=== PATIENT | female | born 1965 | race African-American/Black ===

== ENCOUNTER 2018-06-19 23:36 | Emergency (ER) | payer MEDICAID ==
[~2018-06-19] VITALS: Ht 175.3 cm; Wt 131.5 kg
[~2018-06-19 23:36] MED LIST: ACETAMINOPHEN-1 EAC1 ORAL; BACTRIM DS TAB1 EAC1 ORAL; CEPHALEXIN500 MG ORAL; KEFLEX500 MG ORAL; NKM; NORCO 5-325 TA1 EACH ORAL
[2018-06-20 00:11] VITALS: BP 141/90
[2018-06-20] MEDS ORDERED: Cephalexin 500mg cap ORAL ONE (00:30)
[2018-06-20] MEDS ORDERED: Bactrim-DS 1 tab ORAL ONE (00:30)
[2018-06-20] MEDS ORDERED: BACTRIM DS TAB1 EAC1 ORAL (00:34)
[2018-06-20] MEDS ORDERED: CEPHALEXIN500 MG ORAL (00:34)
[2018-06-20] MEDS ORDERED: ACETAMINOPHEN-1 EAC1 ORAL (00:34)
[2018-06-20 00:58] VITALS: BP 139/89
--- NOTE | 2018-06-20 02:18 | Emergency Room Report ---
History of Present Illness General Chief Complaint: Female Urogenital Problems Source: Patient Present Illness HPI 53-year-old female presents ED for evaluation. Patient notes a boil on her vagina 1 day. Pain is throbbing, 9 out of 10, nonradiating. Denies fevers chills. Denies discharge. States she's had these many times in the past; has sometimes required antibiotics. Some has required drainage. No other aggravating relieving factors. Denies any other associated symptoms Allergies: Coded Allergies: No Known Allergies (Unverified , 11/10/17) Patient History Past Medical History: none Past Surgical History: none Pertinent Family History: none Social History: Denies: smoking, alcohol use, drug use Now: No Immunizations: UTD Reviewed Nursing Documentation: PMH: Agreed; PSxH: Agreed Nursing Documentation-PMH Past Medical History: No Stated History Review of Systems All Other Systems: negative except mentioned in HPI Physical Exam Vital Signs Date Time Temp Pulse Resp B/P (MAP) Pulse Ox O2 Delivery O2 Flow Rate FiO2 06/19/18 23:55 98.1 87 18 149/91 98 Room Air 98.1 Sp02 EP Interpretation: reviewed, normal General Appearance: no apparent distress, alert, GCS 15, non-toxic Head: normocephalic Eyes: bilateral eye normal inspection, bilateral eye PERRL ENT: normal ENT inspection Neck: normal inspection Respiratory: normal inspection Cardiovascular #1: normal inspection Gastrointestinal: normal inspection Rectal: deferred Genitourinary: no CVA tenderness, other - customer service representative teacher present. induration/ erythema to R labia. no fluctuance or discharge. Musculoskeletal: normal inspection Neurologic: alert, oriented x3, responsive, motor strength/tone normal, sensory intact, speech normal Psychiatric: normal inspection Skin: other - induration/erythema R labia Lymphatic: normal inspection Medical Decision Making Diagnostic Impression: Primary Impression: Labial abscess ER Course Hospital Course 53-year-old female presents to ED with pain/swelling to labia Differential diagnoses include: Cellulitis, dermatitis, insect bite, abscess Clinical course Patient placed on stretcher. After initial history, physical exam reveals a middle aged female in no acute distress. On exam there is a site for mild erythema and induration to the R labia. There is no fluctuance. No discharge Discussed findings with patient. I do not believe this is amenable to drainage at this time. We will prescribe antibiotics. Recommend sitz baths.. Close follow-up with PMD. patient agrees to plan given pain meds, antibiotics in ED Diagnosis - labial abscess stable and discharged to home with prescription for Tylenol #3, bactrim, Keflex. Instructed to followup with PMD. Instructed return to ED if symptoms recur or worsen Last Vital Signs Date Time Temp Pulse Resp B/P (MAP) Pulse Ox O2 Delivery O2 Flow Rate FiO2 06/20/18 00:58 98.0 06/20/18 00:58 87 16 139/89 95 Room Air Status: improved Disposition: HOME, SELF-CARE Condition: Stable Scripts Cephalexin* (KEFLEX*) 500 Mg Capsule 500 MG ORAL EVERY 6 HOURS for 7 Days, CAP Prov: Pratik Shelton MD 06/20/18 Trimethoprim/Sulfamethoxazole 160/800* (BACTRIM DS TABLET*) 1 Each Tablet 1 TAB ORAL Q12H, #14 TAB 0 Refills Prov: Pratik Shelton MD 06/20/18 Acetaminophen With Codeine (T#3) (TYLENOL #3 TAB*) Y Tab 1 TAB ORAL Q8H PRN for For Pain, #20 TAB Prov: Pratik Shelton MD 06/20/18 Patient Instructions: Abscess, Mnup-th-Kyid Pratik Shelton MD Jun 20, 2018 02:18
== END 2018-06-20 | disposition home or self-care (01) ==
LOC: EDBD 23:36 → EMR 06-20 00:17
DX: N76.4 Abscess of vulva (principal)
CPT/HCPCS: 99283

== ENCOUNTER → 2020-02-15 | Emergency (ER) | payer MEDICAID ==
[~2020-02-15] VITALS: Ht 172.7 cm; Wt 122.5 kg
[~2020-02-15] MED LIST changes: +IBUPROFEN600 M1 ORAL; +Ketorolac 60mg Inj IM ONE
[2020-02-15 20:05] VITALS: BP 158/87
--- NOTE | 2020-02-15 20:05 | NUR ---
ED Nurse Note: walked in from home c/o left index finger pain since today after hitting on a bedrail. taran wilson. kamerond at bedside.
--- NOTE | 2020-02-15 20:14 | Emergency Room Report ---
History of Present Illness General Chief Complaint: Upper Extremity Injury Source: Patient Present Illness HPI Patient is a 54-year-old female who presents to the ER complaining of left index finger pain after hitting it on the bed. She denies any other trauma. She states that it is worse on palpation and on movement. She complains of mild swelling to the area. Allergies: Coded Allergies: No Known Allergies (Unverified , 11/10/17) COVID-19 Screening Contact w/high risk pt: No Recent Travel to affected area: No Experienced COVID-19 symptoms?: No Patient History Reviewed Nursing Documentation: PMH: Agreed; PSxH: Agreed Nursing Documentation-PM Past Medical History: No Stated History Review of Systems All Other Systems: negative except mentioned in HPI Physical Exam Vital Signs Date Time Temp Pulse Resp B/P (MAP) Pulse Ox O2 Delivery O2 Flow Rate FiO2 02/15/20 20:02 98.1 90 18 166/99 (121) 99 Room Air Sp02 EP Interpretation: reviewed, normal General Appearance: no apparent distress, alert, GCS 15, non-toxic Head: normocephalic, atraumatic Eyes: bilateral eye normal inspection, bilateral eye PERRL ENT: hearing grossly normal, normal pharynx, no angioedema, normal voice Neck: full range of motion, supple/symm/no masses Respiratory: chest non-tender, lungs clear, normal breath sounds, speaking full sentences Cardiovascular #1: regular rate, rhythm, no edema Rectal: deferred Musculoskeletal: other - L index finger ttp over PIP, normal ROM, minimal edema , cap refill immediate Neurologic: alert, motor strength/tone normal, oriented x3, sensory intact, responsive, speech normal Skin: no rash Lymphatic: no adenopathy Medical Decision Making Diagnostic Impression: Primary Impression: Finger sprain ER Course Patient's x-ray demonstrates no acute fracture. Patient given Toradol IM. After discussing risks and benefits of further diagnostics, treatment plans, as well as indications for and risks of admission, the patient is agreeable to being discharged home. I have explained that their evaluation and treatment in the emergency department today is an important step towards them achieving better health but that their evaluation today is not intended to replace further evaluation and treatment by a physician in their local clinic. I have explained that while the current findings suggest no immediate life threatening emergency they will require further evaluation and treatment by a physician of their choice in their area. They understand that it will be necessary for them to review the final reports of their ED visit with their clinic physician. We have reviewed indications for return to the Emergency Department. I have explained that additional time may need to pass and/or additional testing as an outpatient may be necessary before a definitive diagnosis can be made. They tell me they are willing to follow up as instructed within the timeframe I recommend. They appear to understand what we discussed. Additionally they understand that if they are unable to be seen by an outpatient physician they are welcome, and in fact should, return to the Emergency Department for a repeat evaluation. The patient is stable at time of discharge. Other X-Ray Diagnostic Results Other X-Ray Diagnostic Results : X-Ray ordered: L fingers # of Views/Limited Vs Complete: 3 View Indication: Pain EP Interpretation: Yes - MD Rain Interpretation: no dislocation, no soft tissue swelling, no fractures Impression: No acute disease Electronically Signed by: MD Rain Last Vital Signs Date Time Temp Pulse Resp B/P (MAP) Pulse Ox O2 Delivery O2 Flow Rate FiO2 02/15/20 20:02 98.1 90 18 166/99 (121) 99 Room Air Disposition: HOME, SELF-CARE Condition: Stable Scripts Ibuprofen* (MOTRIN*) 600 Mg Tablet 600 MG ORAL FOUR TIMES A DAY, #30 TAB 0 Refills Prov: Paula Rodrigez M.D. 02/15/20 Additional Instructions: The patient was provided with discharge instructions, notified to follow-up with a primary care doctor and or specialist in the next 24-48 hours, and to return to the ED if they have worsening of their symptoms. Please note that this report is being documented using Connect[employer] technology. This can lead to erroneous entry secondary to incorrect interpretation by the dictating instrument. Paula Rodrigez M.D. Feb 15, 2020 20:14
--- NOTE | 2020-02-15 20:15 | NUR ---
ED Nurse Note: xr at bedside
--- NOTE | 2020-02-15 20:30 | Diagnostic Imaging Report ---
EXAM: XR Left Fingers, 2 or More Views CLINICAL HISTORY: PAIN TECHNIQUE: Frontal, lateral and oblique views of the fingers of the left hand. COMPARISON: No relevant prior studies available. FINDINGS: Negative for fracture, dislocation or radio opaque foreign body.
[2020-02-15 20:50] VITALS: BP 146/72
--- NOTE | 2020-02-15 20:50 | NUR ---
ER DISCHARGE NOTE: Patient is cleared to be discharged per ERMD, pt is aox4, on room air, with stable vital signs. pt was given dc and prescription instructions, pt was able to verbalize understanding, pt id band removed without complications. pt is able to ambulate with steady gait. pt took all belongings.
== END | disposition home or self-care (01) ==
LOC: EMR 20:00
DX: S63.611A Unspecified sprain of left index finger, initial encounter (principal); W22.8XXA Striking against or struck by other objects, initial encounter; Y92.9 Unspecified place or not applicable
CPT/HCPCS: 73140; 96372; Z7502; 99283

== ENCOUNTER 2020-06-13 11:20 | Emergency (ER) | payer MEDICAID ==
[~2020-06-13] VITALS: Ht 172.7 cm; Wt 127.0 kg
[~2020-06-13 11:20] MED LIST changes: -Ketorolac 60mg Inj IM ONE
--- NOTE | 2020-06-13 11:42 | Emergency Room Report ---
History of Present Illness General Chief Complaint: Lower Extremity Injury Source: Patient Present Illness HPI Patient is a 55-year-old female who presents after increased left-sided foot pain. Patient reports having pain to the lateral aspect of the left foot after inverting her ankle. Denies any ankle pain. Reports having felt a pop. States that she had been having difficulty with ambulation since the injury which occurred 6 hours prior to being seen. Denies any other locations or current complaints. Did not take any pain medications prior to arrival. Has been having difficulty with ambulation and been unable to bear weight Allergies: Coded Allergies: No Known Allergies (Unverified , 11/10/17) COVID-19 Screening Contact w/high risk pt: No Recent Travel to affected area: No Experienced COVID-19 symptoms?: No COVID-19 Testing performed AUTO BODY DETAILER: No Patient History Past Medical History: see triage record Now: No Reviewed Nursing Documentation: PMH: Agreed; PSxH: Agreed Nursing Documentation-PMH Past Medical History: No Stated History Review of Systems All Other Systems: negative except mentioned in HPI Physical Exam Vital Signs Date Time Temp Pulse Resp B/P (MAP) Pulse Ox O2 Delivery O2 Flow Rate FiO2 06/13/20 11:32 98.4 99 22 154/94 (114) 99 Room Air General Appearance: well appearing, no apparent distress, alert, GCS 15 Head: normocephalic, atraumatic ENT: hearing grossly normal, normal voice Neck: full range of motion, supple Respiratory: no respiratory distress, speaking full sentences Gastrointestinal: normal inspection Musculoskeletal: other - Swelling and tenderness to the lateral aspect of the left foot near the fifth metatarsal and fourth metatarsal Neurologic: normal gait Psychiatric: mood/affect normal Skin: no rash Medical Decision Making Diagnostic Impression: Primary Impression: Metatarsal bone fracture ER Course Patient presented for left foot pain. Differential diagnosis include was not limited to fracture, sprain, contusion among others. X-ray imaging showed nondisplaced fifth metatarsal fracture read by radiology. Patient was placed in a posterior splint. She tolerated this well and was neurovascular intact after splinting. Patient was advised to follow-up with orthopedics as well as to keep her foot elevated and maintain nonweightbearing status. The patient is advised to follow up with primary care doctor in 1-2 days. Patient is advised to return if any worsening condition or if any changes in status that are concerning. This report is dictated with Dragon screen maker software which may occasionally lead to discrepancies related to use of this software. Last Vital Signs Date Time Temp Pulse Resp B/P (MAP) Pulse Ox O2 Delivery O2 Flow Rate FiO2 06/13/20 11:32 98.4 99 22 154/94 (114) 99 Room Air Status: improved Disposition: HOME, SELF-CARE Condition: Stable Scripts Ibuprofen* (MOTRIN*) 600 Mg Tablet 600 MG ORAL Q8H PRN for FOR PAIN, #30 TAB 0 Refills Prov: Yuriy Kyle MD 06/13/20 Hydrocodone Bit/Acetaminophen 10-325* (NORCO 10-325*) 1 Each Tablet 1 TAB ORAL Q6H PRN for For Pain, #12 TAB 0 Refills PRN PAIN Prov: Yuriy Kyle MD 06/13/20 Yuriy Kyle MD Jun 13, 2020 11:42
--- NOTE | 2020-06-13 12:12 | Diagnostic Imaging Report ---
EXAM: XR Left Foot Complete, 3 or More Views CLINICAL HISTORY: PAIN TECHNIQUE: Frontal, lateral and oblique views of the left foot. COMPARISON: No relevant prior studies available. FINDINGS: Bones/joints: Fracture of the base of the fifth metatarsal. Mild degenerative changes. Soft tissues: Soft tissue swelling. IMPRESSION: Fracture of the base of the fifth metatarsal.
[2020-06-13] MEDS ORDERED: IBUPROFEN600 M1 ORAL (12:30)
[2020-06-13] MEDS ORDERED: NORCO 10-325 T1 EACH ORAL (12:30)
--- NOTE | 2020-06-13 12:49 | NUR ---
ED Nurse Note: Posterior short splint applied by Dr. Kyle to left leg. Provided crutches and written instruction on how to use crutches. Patient reports decreased pain at this time.
[2020-06-13 12:55] VITALS: BP 161/99
== END 2020-06-13 12:55 | disposition home or self-care (01) ==
LOC: EMR 11:57
DX: S62.317A Displaced fracture of base of fifth metacarpal bone, left hand, initial encounter for closed fracture (principal); X58.XXXA Exposure to other specified factors, initial encounter; Y92.9 Unspecified place or not applicable
CPT/HCPCS: 29515; 73630; Z7502; 99283

== ENCOUNTER 2020-08-09 16:14 | Emergency (ER) | payer MEDICAID ==
[~2020-08-09] VITALS: Ht 170.2 cm; Wt 130.2 kg
[~2020-08-09 16:14] MED LIST changes: +NORCO 10-325 T1 EACH ORAL
--- NOTE | 2020-08-09 16:43 | Emergency Room Report ---
History of Present Illness General Chief Complaint: Pain Source: Patient Present Illness HPI Patient fractured her foot June 12. She had a cast that broke. Is been off for a while. She is continuing to have pain in the foot and feels something jutting out. There is no numbness. The pain is 8/10 at this time. She has been taking Tylenol. The last dose she took was at 6 AM. She feels it helps minimally. The pain is aching and sharp in the lateral side of the foot and radiates to the ankle. She denies injuring the foot again. She is having difficulty finding follow-up. Patient is post hysterectomy. She denies fevers or chills or upper respiratory symptoms. She also denies medication for hypertension or gout. Allergies: Coded Allergies: No Known Allergies (Unverified , 11/10/17) COVID-19 Screening Contact w/high risk pt: No Recent Travel to affected area: No Experienced COVID-19 symptoms?: No COVID-19 Testing performed ORDER ENTRY TECHNICIAN: No Patient History Past Medical History: see triage record Social History: Reports: smoking Social History Narrative Lives up 3 stories Last Menstrual Period: hystrectomy Reviewed Nursing Documentation: PMH: Agreed; PSxH: Agreed Nursing Documentation-PMH Past Medical History: No History, Except For Review of Systems Constitutional: Reports: see HPI Musculoskeletal: Reports: see HPI Skin: Denies: rash Neurological: Reports: see HPI Physical Exam Vital Signs Date Time Temp Pulse Resp B/P (MAP) Pulse Ox O2 Delivery O2 Flow Rate FiO2 08/09/20 16:22 97.0 86 14 153/91 (111) 99 Room Air Sp02 EP Interpretation: reviewed, normal General Appearance: well appearing, no apparent distress, GCS 15 Head: normocephalic Eyes: bilateral eye normal inspection, bilateral eye PERRL ENT: moist mucus membranes Neck: supple Respiratory: normal inspection Cardiovascular #1: regular rate, rhythm Cardiovascular #2: 2+ radial (R), 2+ dorsalis pedis (L) - Good capillary fill Gastrointestinal: normal inspection, overweight Musculoskeletal: gait/station normal - Slight limp, tenderness - Left fifth metatarsal proximal area without significant deformity Neurologic: alert, motor strength/tone normal, distal neuro normal, grossly normal Psychiatric: mood/affect normal Skin: normal color, no rash Medical Decision Making Diagnostic Impression: Primary Impression: Nondisp fracture of fifth left metatarsal bone with delayed healing Qualified Codes: S92.355G - Nondisplaced fracture of fifth metatarsal bone, left foot, subsequent encounter for fracture with delayed healing ER Course Patient presents with left foot pain post fracture June 12. Differential includes repeat injury, contusion, malunion, cellulitis amongst others. Based on her exam cellulitis is excluded. Patient requesting something stronger for pain and given Motrin and Percocet. The foot will be re-x-rayed. Most likely the patient needs to have some stabilization with either an FEDERICO and possibly an Ortho boot. X-ray reveals nonhealed fracture. Federico wrap applied by me. Excellent tension and distal neurovascular intact after application. Improved pain. Patient provided crutches. Discussed need for follow-up with orthopedics. Patient stable for outpatient observation and treatment. Other X-Ray Diagnostic Results Other X-Ray Diagnostic Results : X-Ray ordered: Left foot # of Views/Limited Vs Complete: 2 View Indication: Other EP Interpretation: Yes Interpretation: no dislocation, no soft tissue swelling, other - Fracture still present Impression: Other Electronically Signed by: Electronically signed by Enrique Foy MD Last Vital Signs Date Time Temp Pulse Resp B/P (MAP) Pulse Ox O2 Delivery O2 Flow Rate FiO2 08/09/20 17:08 97.0 08/09/20 16:22 86 14 153/91 (111) 99 Room Air Status: improved Disposition: HOME, SELF-CARE Condition: Improved Scripts Vitamin D3/Folic Acid (Folvite-D 1,000-94.375 Mcg Tab) 1 Each Tablet 1 EACH PO DAILY, #30 TAB Prov: Enrique Foy MD 08/09/20 Multivitamin With Minerals (MULTIVITAMINS WITH MINERALS*) 1 Each Tablet 1 TAB ORAL DAILY for SUPPLEMENT, #30 TAB Prov: Enrique Foy MD 08/09/20 Hydrocodone Bit/Acetaminophen 5-325* (NORCO 5-325 TABLET*) 1 Each Tablet 1 TAB ORAL Q6H PRN for FOR PAIN, #10 TAB 0 Refills Prov: Enrique Foy MD 08/09/20 Ibuprofen* (MOTRIN*) 600 Mg Tablet 600 MG ORAL Q6H PRN for FOR PAIN, #20 TAB 0 Refills Prov: Enrique Foy MD 08/09/20 Enrique Foy MD Aug 09, 2020 16:43
[2020-08-09] MEDS ORDERED: oxyCODONE HCL/Acetaminophen 5/325mg ORAL ONE (16:45)
--- NOTE | 2020-08-09 17:00 | Diagnostic Imaging Report ---
FILM LEFT FOOT History: Pain Comparison: 13 June 2020 Findings: 3 views of the left foot demonstrates a mildly displaced fracture of the proximal fifth metatarsal which may represent incomplete healing of previous fracture or reinjury. Mild soft tissue swelling. Impression: Fracture of the proximal fifth metatarsal with mild displacement which may represent incomplete healing of previous fracture or reinjury.
--- NOTE | 2020-08-09 17:00 | NUR ---
ED Nurse Note:x-ray was done on left foot then jhony wrap with post up shooe and cratchies provided Pt cleared by health care Provider for discharge. DC instructions/prescription was given and explained to pt and verbalized understanding of teachings. All medical deviecs such as ID band removed. Pt is AAO x4, ambulatory and left with all personal belongings.
[2020-08-09] MEDS ORDERED: NORCO 5-325 TA1 EAC1 ORAL (17:01)
[2020-08-09] MEDS ORDERED: MULTIVITAMINS1 EAC8 ORAL (17:01)
[2020-08-09] MEDS ORDERED: FOLVITE-D 1,001 EAC1 PO (17:01)
[2020-08-09] MEDS ORDERED: IBUPROFEN600 M1 ORAL (17:01)
[2020-08-09 17:09] VITALS: BP 153/91
== END 2020-08-09 17:00 | disposition home or self-care (01) ==
LOC: EMR 16:55
DX: S92.355G Nondisplaced fracture of fifth metatarsal bone, left foot, subsequent encounter for fracture with delayed healing (principal); X58.XXXD Exposure to other specified factors, subsequent encounter; Z90.710 Acquired absence of both cervix and uterus; F17.200 Nicotine dependence, unspecified, uncomplicated
CPT/HCPCS: 73630; Z7502; 99283

== ENCOUNTER 2020-11-14 08:58 | Emergency (ER) | payer MEDICAID ==
[~2020-11-14] VITALS: Ht 172.7 cm; Wt 124.7 kg
[~2020-11-14 08:58] MED LIST changes: +FOLVITE-D 1,001 EAC1 PO; +MULTIVITAMINS1 EAC8 ORAL; +NORCO 5-325 TA1 EAC1 ORAL
[2020-11-14] MEDS ORDERED: ERYTHROMYCIN3.5 GM LEFT EYE (09:35)
[2020-11-14] MEDS ORDERED: CEPHALEXIN500 MG ORAL (09:35)
[2020-11-14 09:48] VITALS: BP 138/99
[2020-11-14 09:51] VITALS: BP 138/99
--- NOTE | 2020-11-14 09:52 | NUR ---
examined by dr fernandez discharged home with instruction and rx follow up with pmd
--- NOTE | 2020-11-14 10:16 | Emergency Room Report ---
History of Present Illness General Chief Complaint: Eye Problems Source: Patient Present Illness HPI 55-year-old female presents with left eyelid swelling and pain x2 days. History of stye in the past. Pain is dull, 10 out of 10, nonradiating. Denies any blurry vision. Denies any photophobia. No other aggravating relieving factors. Denies any other associated symptoms Allergies: Coded Allergies: No Known Allergies (Unverified , 11/10/17) COVID-19 Screening Contact w/high risk pt: No Recent Travel to affected area: No Experienced COVID-19 symptoms?: No COVID-19 Testing performed SUPERVISOR CALIBRATION: No Patient History Past Medical History: none Past Surgical History: none Pertinent Family History: none Social History: Denies: smoking, alcohol use, drug use Last Menstrual Period: na Now: No Immunizations: UTD Reviewed Nursing Documentation: PMH: Agreed; PSxH: Agreed Nursing Documentation-PMH Past Medical History: No History, Except For Review of Systems All Other Systems: negative except mentioned in HPI Physical Exam Vital Signs Date Time Temp Pulse Resp B/P (MAP) Pulse Ox O2 Delivery O2 Flow Rate FiO2 11/14/20 09:17 98.2 90 20 138/99 (112) 97 Room Air Sp02 EP Interpretation: reviewed, normal General Appearance: no apparent distress, alert, GCS 15, non-toxic Head: normocephalic, atraumatic Eyes: left eye lid inflammation - upper eyelid stye; bilateral eye PERRL, bilateral eye EOMI, bilateral eye visual acuity ENT: hearing grossly normal, normal pharynx, no angioedema, normal voice Neck: full range of motion, supple/symm/no masses Respiratory: chest non-tender, lungs clear, normal breath sounds, speaking full sentences Cardiovascular #1: regular rate, rhythm, no edema Cardiovascular #2: 2+ carotid (R), 2+ carotid (L), 2+ radial (R), 2+ radial (L), 2+ dorsalis pedis (R), 2+ dorsalis pedis (L) Gastrointestinal: normal bowel sounds, non tender, soft, non-distended, no guarding, no rebound Rectal: deferred Genitourinary: normal inspection, no CVA tenderness Musculoskeletal: back normal, normal range of motion, gait/station normal, non- tender Neurologic: alert, motor strength/tone normal, oriented x3, sensory intact, responsive, speech normal Psychiatric: judgement/insight normal, memory normal, mood/affect normal, no suicidal/homicidal ideation Reflexes: 3+ bicep (R), 3+ bicep (L), 3+ tricep (R), 3+ tricep (L), 3+ knee (R), 3+ knee (L) Lymphatic: no adenopathy Medical Decision Making Diagnostic Impression: Primary Impression: Stye Qualified Codes: H00.014 - Hordeolum externum left upper eyelid ER Course Hospital Course 55-year-old female with left eyelid pain Differential diagnoses include: conjunctivitis, traumatic iritis, foreign body, corneal abrasion Clinical course Patient placed on stretcher. After initial history, I exam reveals middle-age female in no acute distress. There is swelling and erythema to the left upper eyelid. Consistent with a stye. No ocular involvement. Discussed findings with patient. Will discharge home with antibiotics. Warm compresses. Safe for discharge close outpatient follow-up. I will provide Ortho referrals Diagnosis - stye Stable and discharged to home with prescription for keflex, erythromycin ointment. Followup with PMD/Optho. Return to ED if symptoms recur or worsen Last Vital Signs Date Time Temp Pulse Resp B/P (MAP) Pulse Ox O2 Delivery O2 Flow Rate FiO2 11/14/20 09:51 98.2 20 138/99 97 Room Air 11/14/20 09:17 90 Status: improved Disposition: HOME, SELF-CARE Condition: Stable Scripts Erythromycin Base (ERYTHROMYCIN*) 3.5 Gm Oint...g. 1 APPLIC LEFT EYE QID, #3.5 GM 0 Refills Prov: Pratik Shelton MD 11/14/20 Cephalexin* (KEFLEX*) 500 Mg Capsule 500 MG ORAL EVERY 6 HOURS, #28 CAP Prov: Pratik Shelton MD 11/14/20 Referrals: Ascencion Coelho MD Patient Instructions: Pratik Mcleod MD Nov 14, 2020 10:16
== END 2020-11-14 09:53 | disposition home or self-care (01) ==
LOC: EMR 09:31
DX: H00.014 Hordeolum externum left upper eyelid (principal)
CPT/HCPCS: 99282